=== PATIENT | female | born 1965 | race Caucasian/White ===

== ENCOUNTER 2016-07-21 | Outpatient (CLI) | payer OTHER | END 2016-07-21 10:34 | disposition home or self-care (01) | DX: Z77.098 Contact with and (suspected) exposure to other hazardous, chiefly nonmedicinal, chemicals (principal) ==

== ENCOUNTER 2016-07-30 14:58 | Outpatient (CLI) | payer OTHER | END 2016-07-30 14:59 | disposition home or self-care (01) | DX: Z12.31 Encounter for screening mammogram for malignant neoplasm of breast (principal) ==

== ENCOUNTER 2016-08-11 13:14 | Outpatient (CLI) | payer OTHER | END 2016-08-11 13:15 | disposition home or self-care (01) | DX: G47.10 Hypersomnia, unspecified (principal); G47.8 Other sleep disorders ==

== ENCOUNTER 2017-09-13 09:30 | Outpatient (CLI) | payer OTHER ==
[2017-09-13 10:01] LABS: BASOPHILS # (AUTO) 0.1 10^3/uL (0.0-0.1); BASOPHILS % (AUTO) 1.1 %; EOSINOPHILS # (AUTO) 0.2 10^3/uL (0.0-0.7); EOSINOPHILS % (AUTO) 2.9 %; HGB - HEMOGLOBIN 14.1 g/dL (12.0-16.0); LYMPHOCYTES % (AUTO) 38.4 %; MEAN CORPUSCULAR HEMOGLOBIN 29.3 pg (27.0-31.0); MEAN CORPUSCULAR HGB CONC 34.8 g/dL (32.0-36.0); MEAN CORPUSCULAR VOLUME 84.2 fL (81.0-99.0); MEAN PLATELET VOLUME 8.4 fL (7.9-10.8); MONOCYTES # (AUTO) 0.3 10^3/uL (0.0-1.0); MONOCYTES % (AUTO) 6.2 %; NEUTROPHILS # (AUTO) 2.7 10^3/uL (1.5-6.6); NEUTROPHILS % (AUTO) 51.4 %; PLT - PLATELET COUNT 270 10^3/uL (130-450); RED BLOOD COUNT 4.83 10^6/uL (4.20-5.40); RED CELL DISTRIBUTION WIDTH 13.7 % (12.0-15.0); WHITE BLOOD COUNT 5.3 x10^3/uL (4.8-10.8)
[2017-09-13 10:17] LABS: HB2 TOTAL 15.2 g/dL; HEMOGLOBIN A1C 0.55 g/dL; HEMOGLOBIN A1C % 5.5 % (4.6-6.2)
[2017-09-13 10:22] LABS: ALBUMIN 4.1 g/dL (3.2-5.5); ALBUMIN/GLOBULIN RATIO 1.4 (1.0-2.2); ALKALINE PHOSPHATASE 56 IU/L (42-121); ALT ALANINE AMINOTRANSFERASE 44 IU/L (10-60); AST ASPARTATE AMINOTRANSFERASE 28 IU/L (10-42); BILIRUBIN,TOTAL 0.7 mg/dL (0.2-1.0); BUN - BLOOD UREA NITROGEN 16 mg/dL (6-20); CALCIUM 8.9 mg/dL (8.5-10.3); CARBON DIOXIDE - CO2 25 mmol/L (21-32); CHLORIDE 103 mmol/L (101-111); CHOL/HDL RATIO 5.7 (<4.4); CHOLESTEROL 239 mg/dL; CREATININE 0.8 mg/dL (0.4-1.0); GFR - MDRD 76 (>89); GLUCOSE 114 mg/dL (70-100); HDL CHOLESTEROL 42 mg/dL; LDL CHOLESTEROL,CALCULATED 158 mg/dL; LDL/HDL RATIO 3.8 (<4.4); SODIUM 137 mmol/L (135-145); VLDL CHOLESTEROL 39 mg/dL
== END 2017-09-13 09:31 | disposition home or self-care (01) ==
LOC: LAB 09:30
PROVIDERS: ATTEND Family Medicine
DX: Z00.00 Encounter for general adult medical examination without abnormal findings (principal); E55.9 Vitamin D deficiency, unspecified
CPT/HCPCS: 36415; 80053; 80061; 82306; 83036; 83721; 85025

== ENCOUNTER 2017-11-08 12:30 | Day surgery (SDC) | payer OTHER ==
[2017-11-08] MEDS ORDERED: MIDAZOLAM 2 MG/2 ML VIAL IVP ONE (13:00)
[2017-11-08] MEDS ORDERED: KETAMINE 500 MG/10 ML VIAL IVP ONE (13:00)
[2017-11-08] MEDS ORDERED: SODIUM CHLORIDE 0.9% 10 ML VIAL IV ONE (13:00)
[2017-11-08] MEDS ORDERED: PROPOFOL 200 MG/20 ML VIAL IVP ONE (13:00)
[2017-11-08] MEDS ORDERED: GLYCOPYRROLATE 1 MG/5 ML VIAL IVP ONE (13:00)
[2017-11-08] MEDS ORDERED: fentaNYL 100 MCG/2 ML VIAL IVP ONE (13:00)
[2017-11-08] MEDS ORDERED: LACTATED RINGERS 1,000 ML IV ONE (13:09)
[2017-11-08 14:24] VITALS: BP 136/74
== END 2017-11-08 12:31 | disposition home or self-care (01) ==
LOC: SDS 12:30
PROVIDERS: ATTEND Surgery
PROC: 0DJD8ZZ Inspection of Lower Intestinal Tract, Via Natural or Artificial Opening Endoscopic (ICD-10-PCS; principal; 2017-11-08 13:45)
DX: Z12.11 Encounter for screening for malignant neoplasm of colon (principal); K57.30 Diverticulosis of large intestine without perforation or abscess without bleeding; K64.8 Other hemorrhoids; I10 Essential (primary) hypertension; E78.5 Hyperlipidemia, unspecified; Z87.891 Personal history of nicotine dependence
CPT/HCPCS: 45378; J7120

== ENCOUNTER 2018-05-18 09:33 | Outpatient (CLI) | payer OTHER ==
[2018-05-18 10:38] LABS: HB2 TOTAL 15.3 g/dL; HEMOGLOBIN A1C 0.6 g/dL; HEMOGLOBIN A1C % 5.7 % (4.6-6.2)
[2018-05-18 10:39] LABS: ALBUMIN 4.2 g/dL (3.2-5.5); ALBUMIN/GLOBULIN RATIO 1.4 (1.0-2.2); ALKALINE PHOSPHATASE 66 IU/L (42-121); ALT ALANINE AMINOTRANSFERASE 51 IU/L (10-60); AST ASPARTATE AMINOTRANSFERASE 36 IU/L (10-42); BILIRUBIN,TOTAL 0.9 mg/dL (0.2-1.0); BUN - BLOOD UREA NITROGEN 14 mg/dL (6-20); CALCIUM 8.9 mg/dL (8.5-10.3); CARBON DIOXIDE - CO2 28 mmol/L (21-32); CHLORIDE 102 mmol/L (101-111); CHOLESTEROL 238 mg/dL; CREATININE 0.9 mg/dL (0.4-1.0); GFR - MDRD 66 (>89); GLUCOSE 114 mg/dL (70-100); HDL CHOLESTEROL 48 mg/dL; LDL CHOLESTEROL,CALCULATED 166 mg/dL; LDL/HDL RATIO 3.5 (<4.4); SODIUM 138 mmol/L (135-145); TOTAL PROTEIN 7.3 g/dL (6.7-8.2); VLDL CHOLESTEROL 24 mg/dL
[2018-05-18 11:57] LABS: THYROID STIMULATING HORMONE 1.87 uIU/mL (0.34-5.60)
[2018-05-18 12:25] LABS: FOLLICLE STIMULATING HORMONE 11.69 mIU/mL
== END 2018-05-18 09:34 | disposition home or self-care (01) ==
LOC: LAB 09:33
PROVIDERS: ATTEND Family Medicine
DX: R73.01 Impaired fasting glucose (principal); E78.5 Hyperlipidemia, unspecified; N95.1 Menopausal and female climacteric states
CPT/HCPCS: 36415; 80053; 80061; 83001; 83036; 83721; 84443

== ENCOUNTER 2018-12-27 16:26 | Outpatient (CLI) | payer OTHER ==
--- NOTE | 2018-12-28 08:45 | Mammography Report ---
Reason: SCREENING MAMMOGRAM FOR BREAST CANCER Procedure Date: 12/27/2018 Accession Number: [id number] / [id number] Procedure: RANDY - Screening Mammo w/Tenzin CPT Code: FULL RESULT: EXAM: Screening Mammo w/Tenzin DATE: 12/27/2018 4:45 PM CLINICAL HISTORY: Screening encounter. Family history of breast cancer in a paternal aunt at the age of 70. TECHNIQUE: (B) - Bilateral CC and MLO views were obtained. COMPARISON: 07/30/2016. PARENCHYMAL PATTERN: (D) - The breast(s) demonstrate(s) heterogeneously dense fibroglandular parenchyma. FINDINGS: A gently lobulated isodense well-circumscribed 1.7-0.8 cm right lower outer breast nodule is seen on right MLO 3-D image 28 and 3-D cc image 20 approximately 10 cm from the nipple is also seen on the 2017 study where it was partially obscured by overlying parenchyma. Additional characterization by spot views and ultrasound is recommended for clarification. There are no suspicious masses, calcifications, or areas of distortion in the left breast. IMPRESSION: Incomplete examination. BI-RADS category 0. RECOMMENDATION: (ADDMU) - Additional views using both Mammography and Ultrasound recommended. Right breast. BI-RADS CATEGORY: (0) - Incomplete Examination - need additional evaluation. STANDARD QUALIFYING STATEMENTS: 1. This examination was not reviewed with the aid of Computer-Aided Detection (CAD). 2. A negative or benign imaging report should not preclude biopsy if clinically suspicious findings are present. 3. Dense breasts may obscure an underlying neoplasm. 4. This examination was reviewed with the aid of 3D breast imaging (tomosynthesis).
== END 2018-12-27 16:27 | disposition home or self-care (01) ==
LOC: DI 16:26
PROVIDERS: ATTEND Family Medicine
DX: Z12.31 Encounter for screening mammogram for malignant neoplasm of breast (principal); R92.8 Other abnormal and inconclusive findings on diagnostic imaging of breast; Z80.3 Family history of malignant neoplasm of breast
CPT/HCPCS: 77063; 77067

== ENCOUNTER 2019-01-03 10:51 | Outpatient (CLI) | payer OTHER ==
[2019-01-03 11:26] LABS: ALBUMIN 4.4 g/dL (3.2-5.5); ALBUMIN/GLOBULIN RATIO 1.3 (1.0-2.2); ALKALINE PHOSPHATASE 63 IU/L (42-121); ALT ALANINE AMINOTRANSFERASE 27 IU/L (10-60); AST ASPARTATE AMINOTRANSFERASE 22 IU/L (10-42); BILIRUBIN,TOTAL 0.9 mg/dL (0.2-1.0); BUN - BLOOD UREA NITROGEN 14 mg/dL (6-20); CALCIUM 9.3 mg/dL (8.5-10.3); CARBON DIOXIDE - CO2 23 mmol/L (21-32); CHLORIDE 101 mmol/L (101-111); CHOL/HDL RATIO 5.3 (<4.4); CHOLESTEROL 202 mg/dL; GFR - MDRD 58 (>89); GLUCOSE 123 mg/dL (70-100); HDL CHOLESTEROL 38 mg/dL; LDL CHOLESTEROL,CALCULATED 142 mg/dL; LDL/HDL RATIO 3.7 (<4.4); SODIUM 137 mmol/L (135-145); TOTAL PROTEIN 7.7 g/dL (6.7-8.2); VLDL CHOLESTEROL 22 mg/dL
[2019-01-03 11:28] LABS: HB2 TOTAL 16.8 g/dL; HEMOGLOBIN A1C 0.62 g/dL; HEMOGLOBIN A1C % 5.5 % (4.6-6.2)
== END 2019-01-03 10:52 | disposition home or self-care (01) ==
LOC: LAB 10:51
PROVIDERS: ATTEND Family Medicine
DX: R73.01 Impaired fasting glucose (principal); E78.5 Hyperlipidemia, unspecified
CPT/HCPCS: 36415; 80053; 80061; 83036; 83721

== ENCOUNTER 2019-01-06 09:08 | Outpatient (CLI) | payer OTHER ==
--- NOTE | 2019-01-06 13:42 | Mammography Report ---
Reason: ABNORMAL MAMMOGRAM Procedure Date: 01/06/2019 Accession Number: [id number] / [id number] Procedure: RANDY - Diag Special Views Dig RT CPT Code: FULL RESULT: EXAM: Diag Special Views Dig RT, Breast Unilateral Limited DATE: 01/06/2019 10:01 AM CLINICAL HISTORY: Follow-up abnormal mammogram of 12/27/2018 ADDITIONAL VIEWS RIGHT BREAST: TECHNIQUE: (Right CC, ML, and MLO views were obtained. COMPARISON: 12/27/2018 PARENCHYMAL PATTERN: (D) - The breasts demonstrate heterogeneously dense fibroglandular parenchyma bilaterally. FINDINGS: The density described on the prior mammogram report 12:00 position right breast posterior third persists on additional imaging, is well marginated and relatively lucent, and unchanged since 2017. RIGHT BREAST ULTRASOUND: TECHNIQUE: Targeted ultrasound was performed of the right breast in the area of clinical concern retroareolar breast approximately 10 cm from the nipple with me present. Color Doppler was employed as appropriate. FINDINGS: The breast tissue appears complex. There is no dominant cystic or solid mass, abnormal fluid collection, obvious architectural distortion, posterior shadowing or other finding. IMPRESSION: Probably Benign. BI-RADS category 3. Right breast RECOMMENDATION: (6MOS) - Recommend 6 month follow-up exam. Right breast mammogram. BI-RADS CATEGORY: (3) - Probably Benign. STANDARD QUALIFYING STATEMENTS: 1. This examination was not reviewed with the aid of Computer-Aided Detection (CAD). 2. A negative or benign imaging report should not preclude biopsy if clinically suspicious findings are present. 3. Dense breasts may obscure an underlying neoplasm. 4. This examination was reviewed with the aid of 3D breast imaging (tomosynthesis).
== END 2019-01-06 09:09 | disposition home or self-care (01) ==
LOC: DI 09:08
PROVIDERS: ATTEND Family Medicine
DX: N63.41 Unspecified lump in right breast, subareolar (principal); R92.8 Other abnormal and inconclusive findings on diagnostic imaging of breast
CPT/HCPCS: 76642

== ENCOUNTER 2019-08-09 12:32 | Outpatient (CLI) | payer OTHER ==
--- NOTE | 2019-08-09 14:18 | Mammography Report ---
Reason: ABN MAMMO - 6 MONTH F U Procedure Date: 08/09/2019 Accession Number: [id number] / [id number] Procedure: RANDY - Diagnostic Dig RT CPT Code: Final Report FULL RESULT: EXAM: Diagnostic Dig RT, Breast Unilateral Limited DATE: 08/09/2019 1:14 PM CLINICAL HISTORY: Follow-up abnormal mammogram COMPARISON: 01/06/2019, 12/27/2018, 07/30/2016 MAMMOGRAM: TECHNIQUE: (R) - Right CC and MLO views were obtained. PARENCHYMAL PATTERN: (D) - The breast demonstrates heterogeneously dense fibroglandular parenchyma . FINDINGS: No significant interval change. An oval relatively lucent well-circumscribed 1.7 cm nodule is present in the inferior right breast approximately 7:00 position mammographically 9 cm from the nipple. This is stable in appearance compared with 2017. There are no new suspicious masses, calcifications, or areas of distortion. RIGHT BREAST ULTRASOUND: TECHNIQUE: Real time scanning by the channel installer with saved static images reviewed. FINDINGS: In the lateral right breast no cystic or solid mass or abnormal fluid collection is seen. In the 4:00 position 4 cm from the nipple a hyperechoic oval nodule measuring 0.9 x 0.3 x 0.4 cm is present, likely a lipoma.. IMPRESSION: Benign findings. BI-RADS category 2. RECOMMENDATION: (ANNUAL) - Recommend routine annual screening mammography. Return to routine screening in 6 months. BI-RADS CATEGORY: (2) - Benign Findings. STANDARD QUALIFYING STATEMENTS: 1. This examination was not reviewed with the aid of Computer-Aided Detection (CAD). 2. A negative or benign imaging report should not preclude biopsy if clinically suspicious findings are present. 3. Dense breasts may obscure an underlying neoplasm. 4. This examination was reviewed with the aid of 3D breast imaging (tomosynthesis).
== END 2019-08-09 12:33 | disposition home or self-care (01) ==
LOC: DI 12:32
PROVIDERS: ATTEND Family Medicine
DX: N63.13 Unspecified lump in the right breast, lower outer quadrant (principal); N63.14 Unspecified lump in the right breast, lower inner quadrant
CPT/HCPCS: 76642

== ENCOUNTER 2020-10-31 15:09 | Emergency (ER) | payer OTHER ==
--- OUTSIDE RECORDS SUMMARY | 2020-10-31 15:42 | EXTERNAL MEDICAL SUMMARY RPT | Continuity of Care Document ---
:1965 Demographics Phone Unavailable Preferred Language Unknown Marital Status Unknown Church Affiliation Unknown Race Unknown Ethnic Group Unknown Author Organization [facility] Address [address] [id number] Phone Social History date description facility [id number]
[2020-10-31 17:41] LABS: BASOPHILS % (AUTO) 0.4 %; EOSINOPHILS # (AUTO) 0.1 10^3/uL (0.0-0.7); EOSINOPHILS % (AUTO) 0.7 %; HCT - HEMATOCRIT 41.7 % (37.0-47.0); LYMPHOCYTES # (AUTO) 2.3 10^3/uL (1.5-3.5); LYMPHOCYTES % (AUTO) 26.6 %; MEAN CORPUSCULAR HEMOGLOBIN 29.4 pg (27.0-31.0); MEAN CORPUSCULAR HGB CONC 33.6 g/dL (32.0-36.0); MEAN CORPUSCULAR VOLUME 87.4 fL (81.0-99.0); MEAN PLATELET VOLUME 9.8 fL (7.9-10.8); MONOCYTES # (AUTO) 0.6 10^3/uL (0.0-1.0); MONOCYTES % (AUTO) 7.5 %; NEUTROPHILS # (AUTO) 5.5 10^3/uL (1.5-6.6); NEUTROPHILS % (AUTO) 64.6 %; PLT - PLATELET COUNT 282 10^3/uL (130-450); RED BLOOD COUNT 4.77 10^6/uL (4.20-5.40); RED CELL DISTRIBUTION WIDTH 12.9 % (12.0-15.0); WHITE BLOOD COUNT 8.5 x10^3/uL (4.8-10.8)
[2020-10-31 18:00] LABS: ALBUMIN 4.4 g/dL (3.2-5.5); ALBUMIN/GLOBULIN RATIO 1.3 (1.0-2.2); BILIRUBIN,TOTAL 1.2 mg/dL (0.2-1.0); CREATININE 0.8 mg/dL (0.4-1.0); POTASSIUM 4.1 mmol/L (3.5-5.0); TOTAL PROTEIN 7.8 g/dL (6.7-8.2)
[2020-10-31 18:29] LABS: BILIRUBIN,URINE NEGATIVE (NEGATIVE); GLUCOSE, URINE (UA) NEGATIVE (NEGATIVE); KETONES,URINE (UA) NEGATIVE (NEGATIVE); LEUKOCYTE ESTERASE, URINE NEGATIVE (NEGATIVE); NITRITE,URINE POSITIVE (NEGATIVE); OCCULT BLOOD,URINE NEGATIVE (NEGATIVE); PROTEIN,URINE NEGATIVE (NEGATIVE); UROBILINOGEN,URINE 0.2 (NORMAL) E.U./dL (NORMAL)
[2020-10-31 18:30] LABS: CLARITY,URINE CLEAR (CLEAR)
[2020-10-31] MEDS ORDERED: IPRATROPIUM/ALBUTEROL 3 ML NEB INH STA (18:30)
[2020-10-31] MEDS ORDERED: SODIUM CHLORIDE 0.9% 1,000 ML IV STA (18:33)
[2020-10-31 18:44] LABS: BACTERIA,URINE Moderate /HPF (None Seen); RBC,URINE None Seen /HPF (0-5); SQUAMOUS EPITHELIAL CELL,UR FEW Squamous (<= Few)
[2020-10-31 18:58] LABS: VBG BASE EXCESS 2.5 mmol/L (-2 - +2); VBG HCO3 25.7 mmol/L (23-28); VBG OXYGEN SATURATION 96.8 % (60-80); VBG PCO2 35.5 mmHg (41-51); VBG PH 7.478 (7.31-7.41); VBG PO2 77.5 mmHg (25-47); VBG TOTAL CO2 26.8 mmol/L (24-29)
--- NOTE | 2020-10-31 19:15 | XRAY Report ---
PROCEDURE: Chest 1 View X-Ray INDICATIONS: chest tightness, cough, chills, sob TECHNIQUE: One view of the chest was acquired. COMPARISON: Chest radiographs 01/10/2013 FINDINGS: Surgical changes and devices: None. Lungs and pleura: No pleural effusions or pneumothorax. Lungs are clear. Mediastinum: Mediastinal contours appear normal. Heart size is normal. Bones and chest wall: No suspicious bony lesions. Overlying soft tissues appear unremarkable. IMPRESSION: No acute cardiopulmonary abnormality. Reviewed by: Edmar Fernandes MD on 10/31/2020 7:14 PM PDT Approved by: Edmar Fernandes MD on 10/31/2020 7:14 PM PDT Station ID: [id number]
[2020-10-31] MEDS ORDERED: IOPAMIDOL-300 100 ML VIAL ONE (20:32)
[2020-10-31] MEDS ORDERED: IOPAMIDOL-300 100 ML VIAL IVP ONE (21:13)
--- NOTE | 2020-10-31 21:24 | CT Report ---
PROCEDURE: ANGIO CHEST W/WO INDICATIONS: sob, chest tight, tachycardia, recent travel CONTRAST: IV CONTRAST: Isovue 300 ml: 80 PO CONTRAST: *NO PO CONTRAST TECHNIQUE: After the administration of intravenous contrast, 2 mm thick sections acquired from the pulmonary api fabiola to the posterior costophrenic angles. 3-dimensional maximum intensity projection (MIP) coronal a nd sagittal reformats were then acquired through the thorax. For radiation dose reduction, the follow ing was used: automated exposure control, adjustment of mA and/or kV according to patient size. COMPARISON: Chest radiographs 10/31/2020 FINDINGS: Image quality: Excellent. Pulmonary arteries: Pulmonary arteries are normal in size, and demonstrate no intraluminal filling d efects to suggest central pulmonary embolism. Lungs and pleura: Lungs are clear. No pleural effusions or pneumothorax. Central and peripheral ai rways are patent. Mediastinum: Heart size is normal, without pericardial effusion. No mediastinal or hilar adenopathy . Thoracic aorta is normal in caliber and enhancement. Esophagus is normal in caliber, without hiat al hernia. Bones and chest wall: No suspicious bony lesions. Ribs and thoracic spine appear intact throughout. The thyroid is normal. No axillary or supraclavicular adenopathy. Abdomen: Visualized upper abdominal solid organs appear normal in the early arterial phase of enhanc ement. IMPRESSION: No acute pulmonary embolus. No acute abnormality is identified in the chest. Reviewed by: Edmar Fernandes MD on 10/31/2020 9:23 PM PDT Approved by: Edmar Fernandes MD on 10/31/2020 9:23 PM PDT Station ID: [id number]
--- NOTE | 2020-10-31 22:23 | ED Physician Documentation ---
History of Present Illness - Stated complaint Stated Complaint: SOA/CHEST PX/ABD&HEAD PX - Chief complaint Chief Complaint: Abd Pain - History obtained from History obtained from: Patient - Additonal information Additional information: 55-year-old woman with past medical history of anxiety, chronic back pain presents with Nausea, dizziness, shortness of breath, chest pain, back aches, leg swelling, and urinary frequency. Patient states that she traveled to [place] on 10 08 and developed leg swelling immediately after that flight that resolved upon her return flight 10/17. She has had chills, cough, body aches over the past couple days associated with yellow sputum production and has felt mildly "wheezy". She has been told that she may have mild asthma but does not have an albuterol inhaler at present. Review of Systems Ten Systems: 10 systems reviewed and negative Constitutional: denies: Fever, Chills Cardiac: reports: Chest pain / pressure Respiratory: reports: Dyspnea, Cough GI: reports: Nausea : reports: Frequency. 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 - Present Medications Home Medications: Ambulatory Orders Medication Instructions Recorded Confirmed clonazePAM [KlonoPIN] 0.5 mg PO BID 01/10/13 10/31/20 Oxycodone HCl 10 mg PO PRN PRN 10/20/17 10/31/20 Albuterol Sulf [Ventolin Hfa 1 - 2 puffs INH Q4HR PRN #18 gm 10/31/20 Inhaler] Ciprofloxacin HCl [Cipro] 500 mg PO BID 5 Days #10 tablet 10/31/20 - Allergies Allergies/Adverse Reactions: Allergies Allergy/AdvReac Type Severity Reaction Status Date / Time No Known Drug Allergies Allergy Verified 10/31/20 15:15 - Social History Does the pt smoke?: Yes Smoking Status: Current every day smoker Does the pt drink ETOH?: No Does the pt have substance abuse?: No - Immunizations Immunizations are current?: Yes - POLST Patient has POLST: No PD ED PE NORMAL - Vitals Vital signs reviewed: Yes - General General: Alert and oriented X 3, No acute distress - HEENT HEENT: Atraumatic, PERRL, EOMI - Neck Neck: Supple, no meningeal sign - Cardiac Cardiac: RRR - Respiratory Respiratory: No respiratory distress, Clear bilaterally - Abdomen Abdomen: Non tender, Non distended, Other (Discomfort to palpation suprapubic region) - Back Back: No CVA TTP - Derm Derm: Normal color - Extremities Extremities: No deformity - Neuro Neuro: Alert and oriented X 3 - Psych Psych: Normal mood, Normal affect Results - Vitals Vitals: Vital Signs - 24 hr 10/31/20 10/31/20 10/31/20 15:15 18:37 19:22 Temperature 37.1 C Heart Rate 118 H 118 H 102 H Respiratory 16 20 14 Rate Blood Pressure 178/80 H 121/74 O2 Saturation 98 97 10/31/20 10/31/20 10/31/20 21:00 21:36 22:53 Temperature 36.6 C 38.1 C H Heart Rate 92 96 96 Respiratory 16 24 16 Rate Blood Pressure 138/92 H 134/70 H 132/76 H O2 Saturation 96 100 95 Oxygen O2 Source Room air - Labs Labs: Laboratory Tests 10/31/20 10/31/20 10/31/20 17:35 17:35 17:35 WBC 8.5 RBC 4.77 Hgb 14.0 Hct 41.7 MCV 87.4 MCH 29.4 MCHC 33.6 RDW 12.9 Plt Count 282 MPV 9.8 Neut # (Auto) 5.5 Lymph # (Auto) 2.3 Waller # (Auto) 0.6 Eos # (Auto) 0.1 Baso # (Auto) 0.0 Absolute Nucleated RBC 0.00 Nucleated RBC % 0.0 D-Dimer 293.7 H VBG pH VBG pCO2 VBG pO2 VBG HCO3 VBG Total CO2 VBG O2 Saturation VBG Base Excess Sodium 133 L Potassium 4.1 Chloride 97 L Carbon Dioxide 25 Anion Gap 11.0 BUN 13 Creatinine 0.8 Estimated GFR (MDRD) 75 L Glucose 104 H Calcium 9.0 Total Bilirubin 1.2 H AST 26 ALT 41 Alkaline Phosphatase 125 H B-Natriuretic Peptide Total Protein 7.8 Albumin 4.4 Globulin 3.4 Albumin/Globulin Ratio 1.3 Lipase 22 Urine Color Urine Clarity Urine pH Ur Specific Mandan Urine Protein Urine Glucose (UA) Urine Ketones Urine Occult Blood Urine Nitrite Urine Bilirubin Urine Urobilinogen Ur Leukocyte Esterase Urine RBC Urine WBC Ur Squamous Epith Cells Urine Bacteria Ur Microscopic Review Urine Culture Comments 10/31/20 10/31/20 10/31/20 17:35 18:15 18:41 WBC RBC Hgb Hct MCV MCH MCHC RDW Plt Count MPV Neut # (Auto) Lymph # (Auto) Waller # (Auto) Eos # (Auto) Baso # (Auto) Absolute Nucleated RBC Nucleated RBC % D-Dimer VBG pH 7.478 H VBG pCO2 35.5 L VBG pO2 77.5 H VBG HCO3 25.7 VBG Total CO2 26.8 VBG O2 Saturation 96.8 H VBG Base Excess 2.5 H Sodium Potassium Chloride Carbon Dioxide Anion Gap BUN Creatinine Estimated GFR (MDRD) Glucose Calcium Total Bilirubin AST ALT Alkaline Phosphatase B-Natriuretic Peptide 19 Total Protein Albumin Globulin Albumin/Globulin Ratio Lipase Urine Color YELLOW Urine Clarity CLEAR Urine pH 6.0 Ur Specific Mandan 1.010 Urine Protein NEGATIVE Urine Glucose (UA) NEGATIVE Urine Ketones NEGATIVE Urine Occult Blood NEGATIVE Urine Nitrite POSITIVE H Urine Bilirubin NEGATIVE Urine Urobilinogen 0.2 (NORMAL) Ur Leukocyte Esterase NEGATIVE Urine RBC None Seen Urine WBC 6-10 H Ur Squamous Epith Cells FEW Squamous Urine Bacteria Moderate H Ur Microscopic Review INDICATED Urine Culture Comments INDICATED PD MEDICAL DECISION MAKING - ED course ED course: 35-year-old woman presents with multiple issues, most pressing of which appear to be body aches, subjective chills, sore throat and cough and chest tightness with shortness of breath. She initially had some wheezing on exam that resolved with 1 nebulizer treatment and she symptomatically feels better. Strict return precautions were given. Patient will follow up with her primary doctor. She also had increased urinary frequency and lower abd discomfort with a urinary tract infection on lab work that we treated. Departure - Departure Disposition: 01 Home, Self Care Clinical Impression: Chest tightness, Shortness of breath, Wheezing, UTI (urinary tract infection) Condition: Good Instructions: ED Chest Pain NonCardiac Prescriptions: Albuterol Sulf [Ventolin Hfa Inhaler] 1 - 2 puffs INH Q4HR PRN #18 gm PRN Reason: Shortness Of Air/Wheezing Ciprofloxacin HCl [Cipro] 500 mg PO BID 5 Days #10 tablet Comments: You are seen in the emergency department for chest tightness and shortness of breath that improved after getting a albuterol and ipratropium nebulizer treatment. He also had a urinary tract infection on your urine test. Please take your antibiotics as prescribed and follow-up with your primary doctor this week. Return to the emergency department if you develop any new or worsening symptoms or have other concerns. Discharge Date/Time: 10/31/20 22:56
[2020-10-31 22:54] VITALS: BP 132/76
== END 2020-10-31 22:56 | disposition home or self-care (01) ==
LOC: ED 15:09
DX: R07.89 Other chest pain (principal); R06.02 Shortness of breath; R06.2 Wheezing; N39.0 Urinary tract infection, site not specified; I10 Essential (primary) hypertension; M54.9 Dorsalgia, unspecified; G89.29 Other chronic pain; F41.9 Anxiety disorder, unspecified; F17.200 Nicotine dependence, unspecified, uncomplicated
CPT/HCPCS: 36415; 71045; 71275; 80053; 81001; 82803; 83690; 83880; 85025; 85379; 87086; 87181; 93005; 94640; 99283; 99284; Q9967; 81003

== ENCOUNTER 2021-02-26 07:34 | Outpatient (CLI) | payer OTHER ==
[2021-02-26 07:58] LABS: BASOPHILS % (AUTO) 0.7 %; EOSINOPHILS # (AUTO) 0.2 10^3/uL (0.0-0.7); EOSINOPHILS % (AUTO) 3.7 %; HCT - HEMATOCRIT 44.3 % (37.0-47.0); HGB - HEMOGLOBIN 14.9 g/dL (12.0-16.0); LYMPHOCYTES # (AUTO) 2.8 10^3/uL (1.5-3.5); LYMPHOCYTES % (AUTO) 48.5 %; MEAN CORPUSCULAR HEMOGLOBIN 29.5 pg (27.0-31.0); MEAN CORPUSCULAR HGB CONC 33.6 g/dL (32.0-36.0); MEAN CORPUSCULAR VOLUME 87.7 fL (81.0-99.0); MONOCYTES # (AUTO) 0.4 10^3/uL (0.0-1.0); MONOCYTES % (AUTO) 6.1 %; NEUTROPHILS # (AUTO) 2.3 10^3/uL (1.5-6.6); NEUTROPHILS % (AUTO) 40.8 %; PLT - PLATELET COUNT 296 10^3/uL (130-450); RED BLOOD COUNT 5.05 10^6/uL (4.20-5.40); RED CELL DISTRIBUTION WIDTH 13.2 % (12.0-15.0); WHITE BLOOD COUNT 5.7 x10^3/uL (4.8-10.8)
[2021-02-26 08:17] LABS: ALBUMIN 4.4 g/dL (3.2-5.5); ALBUMIN/GLOBULIN RATIO 1.5 (1.0-2.2); ALKALINE PHOSPHATASE 53 IU/L (42-121); ALT ALANINE AMINOTRANSFERASE 23 IU/L (10-60); AST ASPARTATE AMINOTRANSFERASE 18 IU/L (10-42); BILIRUBIN,TOTAL 0.6 mg/dL (0.2-1.0); BUN - BLOOD UREA NITROGEN 20 mg/dL (6-20); CALCIUM 9.2 mg/dL (8.5-10.3); CARBON DIOXIDE - CO2 25 mmol/L (21-32); CHLORIDE 105 mmol/L (101-111); CHOL/HDL RATIO 5.9 (<4.4); CHOLESTEROL 275 mg/dL; GFR - MDRD 58 (>89); GLUCOSE 120 mg/dL (70-100); HDL CHOLESTEROL 47 mg/dL; LDL CHOLESTEROL,CALCULATED 202 mg/dL; LDL/HDL RATIO 4.3 (<4.4); POTASSIUM 4.5 mmol/L (3.5-5.0); SODIUM 141 mmol/L (135-145); TOTAL PROTEIN 7.3 g/dL (6.7-8.2); TRIGLYCERIDES 131 mg/dL; VLDL CHOLESTEROL 26 mg/dL
[2021-02-26 08:22] LABS: THYROID STIMULATING HORMONE 2.1 uIU/mL (0.34-5.60)
[2021-02-26 08:24] LABS: FREE T4 (FREE THYROXINE) 0.82 ng/dL (0.58-1.64)
[2021-02-26 11:46] LABS: ESTIMATED AVERAGE GLUCOSE 105 mg/dL (70-100); HEMOGLOBIN A1c% 5.3 % (4.27-6.07)
== END 2021-02-26 07:35 | disposition home or self-care (01) ==
LOC: LAB 07:34
PROVIDERS: ATTEND Physician Assistant
DX: Z76.89 Persons encountering health services in other specified circumstances (principal); Z13.220 Encounter for screening for lipoid disorders; Z13.29 Encounter for screening for other suspected endocrine disorder; Z13.1 Encounter for screening for diabetes mellitus
CPT/HCPCS: 36415; 80053; 80061; 83036; 83721; 84439; 84443; 85025

== ENCOUNTER 2021-09-19 12:06 | Outpatient (CLI) | payer OTHER ==
--- NOTE | 2021-09-19 16:48 | XRAY Report ---
PROCEDURE: Cervical Spine 2 View INDICATIONS: SPRAIN OF LIGAMENTS OF C-SPINE TECHNIQUE: 3 view(s) of the cervical spine were acquired. COMPARISON: None. FINDINGS: Bones: No fractures or dislocations to the C7-T1 level. The lateral masses of C1 appear intact on t he odontoid view. No suspicious bony lesions. Mild cervical straightening with minimal mild disc sp jaspal narrowing at C5-6. Soft tissues: No prevertebral soft tissue swelling. IMPRESSION: Minimal early degenerative changes most notable at C5-6. Reviewed by: Rubina Pete MD on 09/19/2021 4:46 PM PDT Approved by: Rubina Pete MD on 09/19/2021 4:46 PM PDT Station ID: [id number]
== END 2021-09-19 12:07 | disposition home or self-care (01) ==
LOC: DI.N 12:06
PROVIDERS: ATTEND Nurse Practitioner
DX: S13.4XXA Sprain of ligaments of cervical spine, initial encounter (principal); M50.322 Other cervical disc degeneration at C5-C6 level

== ENCOUNTER 2021-09-23 07:42 | Outpatient (CLI) | payer OTHER ==
[2021-09-23 08:18] LABS: BASOPHILS % (AUTO) 0.6 %; EOSINOPHILS # (AUTO) 0.1 10^3/uL (0.0-0.7); EOSINOPHILS % (AUTO) 1.9 %; HCT - HEMATOCRIT 42.8 % (37.0-47.0); HGB - HEMOGLOBIN 14.2 g/dL (12.0-16.0); LYMPHOCYTES # (AUTO) 2.3 10^3/uL (1.5-3.5); LYMPHOCYTES % (AUTO) 36.7 %; MEAN CORPUSCULAR HEMOGLOBIN 28.9 pg (27.0-31.0); MEAN CORPUSCULAR HGB CONC 33.2 g/dL (32.0-36.0); MEAN PLATELET VOLUME 10.7 fL (7.9-10.8); MONOCYTES # (AUTO) 0.4 10^3/uL (0.0-1.0); MONOCYTES % (AUTO) 5.8 %; NEUTROPHILS # (AUTO) 3.4 10^3/uL (1.5-6.6); NEUTROPHILS % (AUTO) 54.8 %; PLT - PLATELET COUNT 297 10^3/uL (130-450); RED BLOOD COUNT 4.92 10^6/uL (4.20-5.40); RED CELL DISTRIBUTION WIDTH 14.1 % (12.0-15.0); WHITE BLOOD COUNT 6.2 x10^3/uL (4.8-10.8)
[2021-09-23 08:20] LABS: BILIRUBIN,URINE NEGATIVE (NEGATIVE); GLUCOSE, URINE (UA) NEGATIVE (NEGATIVE); KETONES,URINE (UA) 15 mg/dL (NEGATIVE); LEUKOCYTE ESTERASE, URINE NEGATIVE (NEGATIVE); NITRITE,URINE NEGATIVE (NEGATIVE); OCCULT BLOOD,URINE NEGATIVE (NEGATIVE); PROTEIN,URINE NEGATIVE (NEGATIVE); UROBILINOGEN,URINE 0.2 (NORMAL) E.U./dL (NORMAL)
[2021-09-23 08:40] LABS: ALBUMIN 4.3 g/dL (3.2-5.5); ALBUMIN/GLOBULIN RATIO 1.6 (1.0-2.2); ALKALINE PHOSPHATASE 73 IU/L (42-121); ALT ALANINE AMINOTRANSFERASE 23 IU/L (10-60); AST ASPARTATE AMINOTRANSFERASE 20 IU/L (10-42); BILIRUBIN,TOTAL 0.8 mg/dL (0.2-1.0); BUN - BLOOD UREA NITROGEN 13 mg/dL (6-20); CALCIUM 9.1 mg/dL (8.5-10.3); CARBON DIOXIDE - CO2 24 mmol/L (21-32); CHLORIDE 100 mmol/L (101-111); CHOL/HDL RATIO 6.1 (<4.4); CHOLESTEROL 221 mg/dL; CREATININE 0.8 mg/dL (0.4-1.0); GFR - MDRD 75 (>89); GLUCOSE 86 mg/dL (70-100); HDL CHOLESTEROL 36 mg/dL; LDL CHOLESTEROL,CALCULATED 170 mg/dL; LDL/HDL RATIO 4.7 (<4.4); POTASSIUM 3.7 mmol/L (3.5-5.0); SODIUM 138 mmol/L (135-145); TRIGLYCERIDES 76 mg/dL; VLDL CHOLESTEROL 15 mg/dL
[2021-09-23 08:49] LABS: THYROID STIMULATING HORMONE 1.83 uIU/mL (0.34-5.60)
[2021-09-23 08:50] LABS: BACTERIA,URINE None Seen /HPF (None Seen); CLARITY,URINE CLEAR (CLEAR); RBC,URINE None Seen /HPF (0-5); SQUAMOUS EPITHELIAL CELL,UR FEW Squamous (<= Few); WBC,URINE 0-3 /HPF (0-5)
[2021-09-23 12:12] LABS: ESTIMATED AVERAGE GLUCOSE 103 mg/dL (70-100); HEMOGLOBIN A1c% 5.2 % (4.27-6.07)
== END 2021-09-23 07:43 | disposition home or self-care (01) ==
LOC: LAB 07:42
PROVIDERS: ATTEND Nurse Practitioner
DX: E78.5 Hyperlipidemia, unspecified (principal); R53.83 Other fatigue; E66.9 Obesity, unspecified
CPT/HCPCS: 36415; 80053; 80061; 81001; 83036; 83721; 84443; 85025; 87086

== ENCOUNTER 2022-05-02 21:56 | Emergency (ER) | payer OTHER ==
[2022-05-02 22:03] VITALS: BP 147/72
--- NOTE | 2022-05-02 22:14 | ED Physician Documentation ---
PD HPI LOWER EXT INJURY - Stated complaint Stated Complaint: RT ANKLE INJ - Chief complaint Chief Complaint: Ext Problem - History obtained from History obtained from: Patient - Additional information Additional information: Patient with a history of chronic pain presenting for evaluation of right ankle injury that occurred just prior to arrival. She was out at a Halloween event and did not realize she was on a wheelchair ramp. She stepped off the side and rolled her right ankle. She denies injury elsewhere. She does not take a blood thinner. It does hurt to bear weight. 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 - Present Medications Home Medications: Ambulatory Orders Medication Instructions Recorded Confirmed clonazePAM [KlonoPIN] 0.5 mg PO BID 01/10/13 05/02/22 Oxycodone HCl 10 mg PO PRN PRN 10/20/17 05/02/22 Albuterol Sulf [Ventolin Hfa 1 - 2 puffs INH Q4HR PRN #18 gm 10/31/20 05/02/22 Inhaler] - Allergies Allergies/Adverse Reactions: Allergies Allergy/AdvReac Type Severity Reaction Status Date / Time No Known Drug Allergies Allergy Verified 10/31/20 15:15 - Social History Does the pt smoke?: Yes Smoking Status: Current every day smoker Does the pt drink ETOH?: No Does the pt have substance abuse?: No - Immunizations Immunizations are current?: Yes - POLST Patient has POLST: No PD ED PE NORMAL - General General: Alert and oriented X 3, No acute distress, Well developed/nourished - HEENT HEENT: Atraumatic - Respiratory Respiratory: No respiratory distress - Derm Derm: Warm and dry - Extremities Extremities: No calf tenderness / cord, Other (Tenderness and swelling to right lateral malleolus, Tenderness to base of right fifth metatarsal,no tenderness more proximally and lower extremity, pedal pulses intact, skin is warm and dry, motor and sensation are grossly intact) Results - Vitals Vitals: Vital Signs - 24 hr 05/02/22 22:01 Temperature 36.0 C L Heart Rate 96 Respiratory 18 Rate Blood Pressure 147/72 H O2 Saturation 99 Oxygen O2 Source Room air PD MEDICAL DECISION MAKING - ED course Complexity details: reviewed results, re-evaluated patient ED course: Patient with injury to right ankle and foot after stepping off a wheelchair ramp. No head injury. Neurovascularly intact with compartments of extremity being soft. X-ray demonstrates a fracture at the base of the fifth metatarsal. Patient was placed into a splint and given crutches. She is instructed to not bear weight until seen for follow-up by orthopedic doctor. She is counseled on concerning symptoms to return for. I did offer pain medication but she has pain meds at home and declined need for any currently. Departure - Departure Disposition: Home, Self Care Clinical Impression: Hanson fracture Qualifiers: Encounter type: initial encounter Fracture type: closed Laterality: right Qualified Code(s): S99.191A - Other physeal fracture of right metatarsal, initial encounter for closed fracture Ankle sprain Qualifiers: Encounter type: initial encounter Involved ligament of ankle: unspecified ligament Laterality: right Qualified Code(s): S93.401A - Sprain of unspecified ligament of right ankle, initial encounter Condition: Stable Instructions: ED Fx Foot, ED Sprain Ankle Follow-Up: Naeem Jaeger MD [Provider Admit Priv/Credential] - Comments: You have a fracture in your foot as well as a sprained ankle. We have applied a splint. You should not put weight on this leg until you are seen by an orthopedic surgeon for follow-up. I have included the name of [place] you can contact for close follow-up.Please use the crutches provided. Please continue with pain medication as needed. If you have any new or worsening symptoms please return to the ER. Discharge Date/Time: 05/02/22 23:37
--- NOTE | 2022-05-02 22:41 | XRAY Report ---
PROCEDURE: Ankle 3 View RT INDICATIONS: fall/lateral swelling TECHNIQUE: 3 views of the ankle were acquired. COMPARISON: None FINDINGS: Bones: No dislocations. Ankle mortise is normally aligned. No suspicious bony lesions. There is a transverse fracture at the base of the fifth metatarsal bone. Soft tissues: No tibiotalar joint effusion. Achilles tendon appears normal. IMPRESSION: Fifth metatarsal base transverse fracture. Reviewed by: Rufino Nieto MD on 05/02/2022 10:40 PM PDT Approved by: Rufino Nieto MD on 05/02/2022 10:40 PM PDT Station ID: [id number]
--- NOTE | 2022-05-02 23:35 | XRAY Report ---
PROCEDURE: Foot 3 View RT INDICATIONS: fall TECHNIQUE: 3 views of the foot were acquired. COMPARISON: None FINDINGS: Bones: No dislocations. No suspicious bony lesions. There is a transverse fracture across the base of the fifth metatarsal bone. Soft tissues: No tibiotalar joint effusion. Achilles tendon appears normal. IMPRESSION: Acute fifth metatarsal transverse fracture at its base. Reviewed by: Rufino Nieto MD on 05/02/2022 11:42 PM PDT Approved by: Rufino Nieto MD on 05/02/2022 11:42 PM PDT Station ID: [id number]
== END 2022-05-02 23:37 | disposition home or self-care (01) ==
LOC: ED 21:56
DX: S92.354A Nondisplaced fracture of fifth metatarsal bone, right foot, initial encounter for closed fracture (principal); X50.1XXA Overexertion from prolonged static or awkward postures, initial encounter; Y93.89 Activity, other specified; Y92.89 Other specified places as the place of occurrence of the external cause; F17.200 Nicotine dependence, unspecified, uncomplicated
CPT/HCPCS: 99283

== ENCOUNTER 2022-06-15 13:53 | Outpatient (CLI) | payer OTHER ==
--- NOTE | 2022-06-15 16:19 | XRAY Report ---
PROCEDURE: Ankle 3 View RT INDICATIONS: RIGHT ANKLE FRACTURE TECHNIQUE: 3 views of the ankle were acquired. COMPARISON: 05/11/2022 FINDINGS: Bones: No degenerative change. Joint space is maintained. Plantar calcaneal enthesophyte noted. No f ractures or dislocations. Ankle mortise is normally aligned. No suspicious bony lesions. Soft tissues: No tibiotalar joint effusion. Achilles tendon appears normal. IMPRESSION: No acute finding. No significant degenerative change. Reviewed by: Roberto Munguia MD on 06/15/2022 4:18 PM PST Approved by: Roberto Munguia MD on 06/15/2022 4:18 PM PST Station ID: [id number]
--- NOTE | 2022-06-15 16:21 | XRAY Report ---
PROCEDURE: Foot 3 View RT INDICATIONS: RIGHT FOOT FRACTURE TECHNIQUE: Three views of the foot were acquired. COMPARISON: 05/11/2022 FINDINGS: Right 5th metatarsal base fracture demonstrates changes of ongoing healing with bridging bony callus formation within the fracture lucency seen previously. Alignment is normal. IMPRESSION: Ongoing healing changes in the right 5th metatarsal base. Reviewed by: Roberto Munguia MD on 06/15/2022 4:20 PM PST Approved by: Roberto Munguia MD on 06/15/2022 4:20 PM PST Station ID: [id number]
== END 2022-06-15 13:54 | disposition home or self-care (01) ==
LOC: DI.WOS 13:53
PROVIDERS: ATTEND Orthopaedic Surgery
DX: S92.354D Nondisplaced fracture of fifth metatarsal bone, right foot, subsequent encounter for fracture with routine healing (principal)

== ENCOUNTER 2022-09-11 19:17 | Emergency (ER) | payer OTHER ==
[2022-09-11 19:32] VITALS: BP 152/73
[2022-09-11] MEDS ORDERED: AMOXICILLIN 250 MG CAPSULE PO STA (20:04)
--- NOTE | 2022-09-11 20:06 | ED Physician Documentation ---
PD HPI HEADACHE - Stated complaint Stated Complaint: EAR & SINUS INFECTION - Chief complaint Chief Complaint: Heent - History obtained from History obtained from: Patient - Additional information Additional information: She has been sick with sinus symptoms and pressure for about 12 days. Starting 2 days ago she developed severe left ear pain which now is draining blood. Her daughter was also recently ill with a URI and sinusitis. 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 - Present Medications Home Medications: Ambulatory Orders Medication Instructions Recorded Confirmed clonazePAM [KlonoPIN] 0.5 mg PO BID 01/10/13 05/02/22 Oxycodone HCl 10 mg PO PRN PRN 10/20/17 05/02/22 Albuterol Sulf [Ventolin Hfa 1 - 2 puffs INH Q4HR PRN #18 gm 10/31/20 05/02/22 Inhaler] Amoxicillin 500 mg PO TID #30 cap 09/11/22 Ciproflox/Dexameth Otic Drops 4 drops OT BID #7.5 ml 09/11/22 [Ciprodex Otic Drops] - Allergies Allergies/Adverse Reactions: Allergies Allergy/AdvReac Type Severity Reaction Status Date / Time No Known Drug Allergies Allergy Verified 09/11/22 19:31 - Social History Does the pt smoke?: Yes Smoking Status: Current every day smoker Does the pt drink ETOH?: No Does the pt have substance abuse?: No - Immunizations Immunizations are current?: Yes - POLST Patient has POLST: No PD ED PE NORMAL - Vitals Vital signs reviewed: Yes - General General: Alert and oriented X 3, No acute distress - HEENT HEENT: PERRL, EOMI, Pharynx benign, Other (Severe left otitis media with perforation and some blood in the canal.) - Neuro Neuro: Alert and oriented X 3, Normal speech Results - Vitals Vitals: Vital Signs - 24 hr 09/11/22 19:20 Temperature 37.9 C Heart Rate 112 H Respiratory 18 Rate Blood Pressure 152/73 H O2 Saturation 98 Oxygen O2 Source Room air Departure - Departure Disposition: 01 Home, Self Care Clinical Impression: LOM (left otitis media) Qualifiers: Otitis media type: suppurative Chronicity: acute Recurrence: non-recurrent Spontaneous tympanic membrane rupture: with spontaneous rupture Qualified Code(s): H66.012 - Acute suppurative otitis media with spontaneous rupture of ear drum, left ear Condition: Good Record reviewed to determine appropriate education?: Yes Instructions: ED Otitis Media Acute Adult Prescriptions: Amoxicillin 500 mg PO TID #30 cap Ciproflox/Dexameth Otic Drops [Ciprodex Otic Drops] 4 drops OT BID #7.5 ml Comments: I sent your prescriptions electronically to the [facility] pharmacy at the corner of [address] here in [place]. Follow-up with your doctor in a week for recheck, return for new or worsening symptoms.
== END 2022-09-11 20:11 | disposition home or self-care (01) ==
LOC: ED 19:17
DX: H66.012 Acute suppurative otitis media with spontaneous rupture of ear drum, left ear (principal); F17.200 Nicotine dependence, unspecified, uncomplicated
CPT/HCPCS: 99282; 99283; A9270

== ENCOUNTER 2022-11-26 14:06 | Emergency (ER) | payer OTHER ==
[2022-11-26 14:23] LABS: BASOPHILS # (AUTO) 0.1 10^3/uL (0.0-0.1); BASOPHILS % (AUTO) 0.9 %; EOSINOPHILS # (AUTO) 0.1 10^3/uL (0.0-0.7); EOSINOPHILS % (AUTO) 1.2 %; HGB - HEMOGLOBIN 14.3 g/dL (12.0-16.0); LYMPHOCYTES # (AUTO) 4.2 10^3/uL (1.5-3.5); LYMPHOCYTES % (AUTO) 60.5 %; MEAN CORPUSCULAR HEMOGLOBIN 28.7 pg (27.0-31.0); MEAN CORPUSCULAR HGB CONC 32.5 g/dL (32.0-36.0); MEAN CORPUSCULAR VOLUME 88.2 fL (81.0-99.0); MONOCYTES # (AUTO) 0.4 10^3/uL (0.0-1.0); MONOCYTES % (AUTO) 5.5 %; NEUTROPHILS # (AUTO) 2.2 10^3/uL (1.5-6.6); NEUTROPHILS % (AUTO) 31.8 %; PLT - PLATELET COUNT 318 10^3/uL (130-450); RED BLOOD COUNT 4.99 10^6/uL (4.20-5.40); RED CELL DISTRIBUTION WIDTH 12.9 % (12.0-15.0); WHITE BLOOD COUNT 6.9 x10^3/uL (4.8-10.8)
[2022-11-26] MEDS ORDERED: ONDANSETRON 4 MG/2 ML VIAL IVP STA (14:30)
--- NOTE | 2022-11-26 14:32 | ED Physician Documentation ---
PD HPI ABD PAIN - Stated complaint Stated Complaint: SEVERE ABD PX,NUMBNESS - Chief complaint Chief Complaint: Abd Pain - History obtained from History obtained from: Patient - History of Present Illness Quality: Sharp, Stabbing Location: RUQ Radiation: Right shoulder Improved by: Laying still, Meds Worsened by: Eating, Moving, Position, Palpation Associated symptoms: Nausea. No: Fever, Vomiting, Hematemesis, Diarrhea, Constipation, Melena, Hematochezia, Dysuria, Hematuria, Chest pain, Dizzy, Near syncope / syncope, Loss of appetite, Weight loss, Vaginal bleeding, Vaginal dc, Testicular pain, Other - Additional information Additional information: 57-year-old female who has a history of chronic pain, on chronic narcotic therapy, presents with acute onset of right upper quadrant pain. Pain started about an hour prior to arrival, shortly after she ate some watermelon. It is localized to the right upper quadrant and radiates into the right back. She feels nauseous but has not vomited, no fever or chills, no chest pain or d ifficulty breathing, no diarrhea or constipation, no urinary symptoms. She had 2 bowel movements this morning. No history of kidney stones or gallstones. Patient relates that she has lost 140 pounds in the past year by diet modifications. Only prior surgery was a many years ago. Patient states she did take a Percocet prior to arrival as well as a clonazepam she felt she was starting to have a panic attack due to the pain. 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 - Present Medications Home Medications: Ambulatory Orders Medication Instructions Recorded Confirmed clonazePAM [KlonoPIN] 0.5 mg PO BID 01/10/13 05/02/22 Oxycodone HCl 10 mg PO PRN PRN 10/20/17 05/02/22 Albuterol Sulf [Ventolin Hfa 1 - 2 puffs INH Q4HR PRN #18 gm 10/31/20 05/02/22 Inhaler] Amoxicillin 500 mg PO TID #30 cap 09/11/22 Ciproflox/Dexameth Otic Drops 4 drops OT BID #7.5 ml 09/11/22 [Ciprodex Otic Drops] Ondansetron Odt [Zofran] 4 mg TL Q6H PRN #10 tablet 11/26/22 - Allergies Allergies/Adverse Reactions: Allergies Allergy/AdvReac Type Severity Reaction Status Date / Time No Known Drug Allergies Allergy Verified 11/26/22 14:12 - Social History Does the pt smoke?: Yes Smoking Status: Current every day smoker Does the pt drink ETOH?: No Does the pt have substance abuse?: No - Immunizations Immunizations are current?: Yes - POLST Patient has POLST: No PD ED PE NORMAL - Vitals Vital signs reviewed: Yes - General General: Alert and oriented X 3, Well developed/nourished, Other (Appears uncomfortable but nontoxic) - HEENT HEENT: Atraumatic, Moist mucous membranes - Cardiac Cardiac: RRR, No murmur, No gallop, No rub - Respiratory Respiratory: No respiratory distress, Clear bilaterally - Abdomen Abdomen: Normal bowel sounds, Soft, Non tender, Other (Right upper quadrant tender to palpation, no other areas of abdominal tenderness) - Back Back: No CVA TTP, No spinal TTP - Derm Derm: Normal color, Warm and dry - Extremities Extremities: No deformity, No tenderness to palpate, Normal ROM s pain, No edema, No calf tenderness / cord - Neuro Neuro: Alert and oriented X 3 Eye Opening: Spontaneous Motor: Obeys Commands Verbal: Oriented GCS Score: 15 - Psych Psych: Normal mood, Normal affect Results - Vitals Vitals: Vital Signs - 24 hr 11/26/22 14:09 Temperature 36.3 C L Heart Rate 99 Respiratory 16 Rate Blood Pressure 168/87 H O2 Saturation 100 Oxygen O2 Source Room air - Labs Labs: Laboratory Tests 11/26/22 11/26/22 11/26/22 14:17 14:17 15:50 WBC 6.9 RBC 4.99 Hgb 14.3 Hct 44.0 MCV 88.2 MCH 28.7 MCHC 32.5 RDW 12.9 Plt Count 318 MPV 10.0 Neut # (Auto) 2.2 Lymph # (Auto) 4.2 H [place] # (Auto) 0.4 Eos # (Auto) 0.1 Baso # (Auto) 0.1 Absolute Nucleated RBC 0.00 Nucleated RBC % 0.0 Sodium 141 Potassium 3.7 Chloride 102 Carbon Dioxide 25 Anion Gap 14.0 H BUN 15 Creatinine 0.9 Estimated GFR (MDRD) 65 L Glucose 102 H Calcium 9.6 Total Bilirubin 0.5 AST 29 ALT 30 Alkaline Phosphatase 54 Total Protein 7.4 Albumin 4.6 Globulin 2.8 Albumin/Globulin Ratio 1.6 Lipase 31 Urine Color YELLOW Urine Clarity CLEAR Urine pH 8.0 H Ur Specific [place] 1.010 Urine Protein NEGATIVE Urine Glucose (UA) NEGATIVE Urine Ketones NEGATIVE Urine Occult Blood NEGATIVE Urine Nitrite NEGATIVE Urine Bilirubin NEGATIVE Urine Urobilinogen 0.2 (NORMAL) Ur Leukocyte Esterase NEGATIVE Ur Microscopic Review NOT INDICATED Urine Culture Comments NOT INDICATED - Rads (name of study) No standard instances Relevant Findings:: Final report received PD Medical Decision Making - ED course Complexity details: reviewed results, re-evaluated patient, considered differential, d/w patient ED course: 57-year-old female with past medical history as above presented with sudden onset right upper quadrant abdominal pain shortly prior to arrival. On arrival here, patient was writhing in pain localized to the right upper quadrant but otherwise stable and nontoxic-appearing. She declined any pain medication as she had just taken some at home as well as a clonazepam at home prior to arrival. Initial concern for possible gallstones or acute cholecystitis or pancreatitis or gastroenteritis. We obtained labs which are largely reassuring, she has a stable CBC, CMP significant for anion gap of 14 but otherwise stable. Her liver function appears normal. I proceeded with a CT scan given patient's significant pain and this was essentially unremarkable as reviewed above. I followed back up with patient and her pain and completely resolved, she had no recurrence of pain while here and did not receive any pain medicine here. I do not have an expedition for patient's pain at this point in time but Given reassuring labs and CT scan, have low suspicion for an emergent abdominal process at this time. I did advise patient to adhere to a clear liquid diet and advance as tolerated today, if she has recurrence of this pain or other new concerns, return to the ER or follow-up with PCP.Patient was discharged home with a short course of Zofran to use as needed. Departure - Departure Disposition: 01 Home, Self Care Clinical Impression: Abdominal pain Condition: Good Instructions: ED Abdominal Pain Female Non-Specific Abdominal Pain Prescriptions: Ondansetron Odt [Zofran] 4 mg TL Q6H PRN #10 tablet PRN Reason: Nausea / Vomiting Comments: You presented with right upper quadrant abdominal pain that started suddenly today. Your physical exam here is stable, labs are unremarkable and not suggestive of infection or acute liver or gallbladder issue. You also do not have a urinary tract infection. We obtained a CT of this area which is essentially normal, there is very mild hepatic steatosis which is fat deposits in the liver, and this can be improved with diet, and you also have a nonspecific lesion on the spleen that is likely a benign hemangioma but this can be followed up as an outpatient with your primary doctor.
[2022-11-26 14:41] LABS: ALBUMIN 4.6 g/dL (3.2-5.5); ALBUMIN/GLOBULIN RATIO 1.6 (1.0-2.2); BILIRUBIN,TOTAL 0.5 mg/dL (0.2-1.0); CALCIUM 9.6 mg/dL (8.5-10.3); CREATININE 0.9 mg/dL (0.4-1.0); POTASSIUM 3.7 mmol/L (3.5-5.0); TOTAL PROTEIN 7.4 g/dL (6.7-8.2)
[2022-11-26] MEDS ORDERED: iohexoL-300 100 ML VIAL ONE (14:51)
[2022-11-26] MEDS ORDERED: iohexoL-300 100 ML VIAL IVP ONE (15:16)
[2022-11-26 16:01] LABS: BILIRUBIN,URINE NEGATIVE (NEGATIVE); GLUCOSE, URINE (UA) NEGATIVE (NEGATIVE); KETONES,URINE (UA) NEGATIVE (NEGATIVE); LEUKOCYTE ESTERASE, URINE NEGATIVE (NEGATIVE); NITRITE,URINE NEGATIVE (NEGATIVE); OCCULT BLOOD,URINE NEGATIVE (NEGATIVE); PROTEIN,URINE NEGATIVE (NEGATIVE); UROBILINOGEN,URINE 0.2 (NORMAL) E.U./dL (NORMAL)
[2022-11-26 16:03] LABS: CLARITY,URINE CLEAR (CLEAR)
--- NOTE | 2022-11-26 16:35 | CT Report ---
PROCEDURE: ABDOMEN/PELVIS W INDICATIONS: acute RUQ pain CONTRAST: 100ml Omnipaque 300 TECHNIQUE: After the administration of IV contrast, 5 mm thick sections acquired from the diaphragms to the symp hysis. 5 mm thick coronal and sagittal reformats were acquired. For radiation dose reduction, the f ollowing was used: automated exposure control, adjustment of mA and/or kV according to patient size. COMPARISON: Not available. FINDINGS: Image quality: Excellent. Lung bases and heart: Right middle lobe, lingula and lower lobe scars and atelectasis. Small hiatal hernia. Liver: No solid mass. Normal sinus. Mild hepatic steatosis. Gallbladder and biliary tree: No gallstones. No biliary dilation. Spleen: No splenomegaly. There is a 1 cm indeterminate hypodensity, probably a hemangioma. Pancreas: No pancreatic ductal dilation. Adrenals: No adrenal nodule. Kidneys and ureters: No hydronephrosis. No renal cystic lesion which requires follow up. No solid mas s. Bowel and peritoneum: No bowel distension. No pathologic free fluid. There is a large amount of stool in colon. Lymph nodes: No central or retroperitoneal adenopathy. Vessels: No infrarenal aortic aneurysm. PELVIS Reproductive organs: Unremarkable. Bladder: No abnormal wall thickening, accounting for underdistension. Pelvic lymph nodes: No pelvic adenopathy by size criteria. Bones: No aggressive osseous abnormality. Other: No significant ventral or inguinal hernia. IMPRESSION: 1. A cause for right upper quadrant pain is not identified on CT. 2. Mild hepatic steatosis. 3. A 1 cm indeterminate hypodensity in spleen, most likely a hemangioma. Consider nonemergent follow- up ultrasound. Reviewed by: Joann Mares MD on 11/26/2022 4:34 PM PDT Approved by: Joann Mares MD on 11/26/2022 4:34 PM PDT Station ID: [id number]
[2022-11-26 16:47] VITALS: BP 117/59
== END 2022-11-26 16:57 | disposition home or self-care (01) ==
LOC: ED 14:06
DX: R10.11 Right upper quadrant pain (principal); K76.0 Fatty (change of) liver, not elsewhere classified; D73.89 Other diseases of spleen; F17.200 Nicotine dependence, unspecified, uncomplicated
CPT/HCPCS: 36415; 74177; 80053; 81003; 83690; 85025; 96374; 99284; Q9967; 81001; 87086

== ENCOUNTER 2022-12-27 11:51 | Outpatient (CLI) | payer OTHER ==
--- NOTE | 2022-12-27 12:32 | Ultrasound Report ---
PROCEDURE: Abdomen Limited INDICATIONS: LESION OF SPLEEN TECHNIQUE: Real-time focused scanning was performed of the abdomen, with image documentation. COMPARISONS: 11/26/2022 CT. FINDINGS: Spleen measures 10.3 cm without focal mass. IMPRESSION: Nonvisualization of splenic mass. Reviewed by: Gabriela Jacome MD on 12/27/2022 12:30 PM PDT Approved by: Gabriela Jacome MD on 12/27/2022 12:30 PM PDT Station ID: [id number]
== END 2022-12-27 11:52 | disposition home or self-care (01) ==
LOC: DI 11:51
PROVIDERS: ATTEND Nurse Practitioner
DX: D73.89 Other diseases of spleen (principal)

== ENCOUNTER 2023-12-16 08:00 | Outpatient (CLI) | payer OTHER | END 2023-12-16 23:59 | disposition home or self-care (01) | LOC: LAB.N 08:00 | PROVIDERS: ATTEND Physician Assistant Medical | DX: N39.0 Urinary tract infection, site not specified (principal) | CPT/HCPCS: 87086 ==